=== PATIENT | female | born 1950 | race American Indian/Alaskan Native ===

== ENCOUNTER 2016-03-06 07:19 | Day surgery (SDC) | payer MEDICARE ==
[~2016-03-06 07:19] MED LIST: ANCEF/STERILE WATER 2 GM/20 ML 20 ML IV NR; NACL 0.9% 1000 ML 1,000 ML IV SCH; PEPCID PO NR
--- NOTE | 2016-03-06 07:55 | Anesthesia Day of Surgery ---
Anesthesia Day of Surgery - Day of Surgery Patient Examined: Yes Patient H&P Reviewed: Yes Patient is NPO: Yes
--- NOTE | 2016-03-06 07:55 | Anesthesia Consultation ---
Anesthesia Consult and Med Hx Date of service: 03/06/16 - Airway Anesthetic Teeth Evaluation: Bridges ROM Head & Neck: Adequate Mental/Hyoid Distance: Adequate Mallampati Class: Class II Intubation Access Assessment: Good - Pulmonary Exam CTA: Yes - Cardiac Exam Cardiac Exam: No Murmur - Pre-Operative Health Status ASA Pre-Surgery Classification: ASA2 Proposed Anesthetic Plan: General - Pulmonary Hx Smoking: No Hx Asthma: Yes (USES INHALERS QD) SOB: No Hx Sleep Apnea: No (ARMIDA PRE SCREEN HIGH RISK) - Cardiovascular System Hx Hypertension: Yes (NO MEDS) Hx Coronary Artery Disease: No Hx Heart Attack/AMI: No Hx Peripheral Vascular Disease: No - Central Nervous System Hx Seizures: No CVA: No Hx Psychiatric Problems: No - Gastrointestinal Hx Gastroesophageal Reflux Disease: Yes (Mild) - Endocrine Hx Renal Disease: No (Kidney stones) Hx Non-Insulin Dependent Diabetes: No - Hematic Hx Anemia: No - Other Systems Hx Alcohol Use: No Hx Substance Use: No Hx Cancer: No Hx Obesity: Yes (BMI=35)
[2016-03-06] MEDS ORDERED: SUBLIMAZE ONE (08:25)
[2016-03-06] MEDS ORDERED: DIPRIVAN 10 MG/ML IV ONE (08:26)
[2016-03-06] MEDS: VERSED IV NR ×2 (08:33→08:55)
--- NOTE | 2016-03-06 08:42 | XRay Report ---
AP ABDOMEN: HISTORY: Kidney stone. FINDINGS: There is moderate gas and stool in the colon. The renal shadows are grossly normal. No obvious pathologic calcifications are detected. Pelvic phleboliths are noted. The lung bases are not included. Surgical sutures and clips are noted in the right upper quadrant and near the GE junction, correlate with history. IMPRESSION: Mild fecal retention.
[2016-03-06] MEDS ORDERED: NEO SYNEPHRINE/NS Syringe(OR USE) IV ONE (09:32)
[2016-03-06] MEDS ORDERED: ROBINUL ONE (09:32)
[2016-03-06] MEDS ORDERED: XYLOCAINE MPF 2% ONE (09:47)
[2016-03-06] MEDS ORDERED: DECADRON ONE (09:47)
[2016-03-06] MEDS ORDERED: ZOFRAN ONE (09:47)
[2016-03-06] MEDS ORDERED: WATER FOR IRRIG STERILE IR ONE (10:06)
[2016-03-06] MEDS ORDERED: DILAUDID ONE (10:39)
[2016-03-06] MEDS ORDERED: NACL 0.9% 1000 ML 1,000 ML ONE (10:42)
--- NOTE | 2016-03-06 10:57 | Short Stay Summary ---
Short Stay Documentation Date of service: 03/06/16 - History H&P: obtained from office - Allergies and Medications Current Medications: Allergies latex Adverse Reaction (Verified 07/24/14 14:47) Shortness of Breath Home Medications Medication Instructions Recorded Confirmed Last Taken Type Albuterol Sulfate [Albuterol 0.63%] 0.63 mg IH TID PRN 07/24/14 03/06/16 06:00 History Budesonide [Pulmicort Flexhaler] 90 mcg IH BID 07/24/14 03/06/16 03/06/16 06:00 History Dicyclomine [Bentyl] 10 mg PO PRN PRN 07/24/14 03/06/16 2 Weeks Ago History Gabapentin 300 mg PO DAILY 07/24/14 03/06/16 03/05/16 18:00 History Hyoscyamine Subl [Levsin Sl 0.125] 0.125 mg SL Q4HR PRN 07/24/14 03/06/16 22:00 History Lutein 20 mg PO DAILY 07/24/14 03/06/16 2 Weeks Ago History valACYclovir [Valtrex] 500 mg PO 4XW 07/24/14 03/06/16 2 Weeks Ago History Ibuprofen [Motrin 400 MG tab] 400 mg PO PRN PRN 05/03/15 03/06/16 2 Weeks Ago History Centrum Silver Tablet 1 tab PO DAILY 02/26/16 03/06/16 03/05/16 06:00 History HYDROcodone/ACETAMINOPHEN 1 tab PO Q6HR PRN 02/26/16 03/06/16 1 Week Ago History [HYDROcodone-Acetamin 5-163/7.5] Lactobacillus Acidophilus 1 tab PO DAILY 02/26/16 03/06/16 03/05/16 06:00 History [Acidophilus Probiotic] Active Medications Famotidine (Pepcid) 20 mg PO PREOP NR Stop: 03/06/16 23:59 Last Admin: 03/06/16 08:17 Dose: 20 mg Sodium Chloride (Nacl 0.9% 1000 Ml) 1,000 mls @ 100 mls/hr IV DIRECT SOILA Last Admin: 03/06/16 08:29 Dose: 100 mls/hr Cefazolin Sodium (Ancef/Sterile Water 2 Gm/20 Ml) 20 mls @ 80 mls/hr IV PREOP NR PRN Reason: Protocol Stop: 03/06/16 23:59 Midazolam HCl (Versed) 2 mg IV PREOP NR Stop: 03/06/16 23:59 Last Admin: 03/06/16 08:55 Dose: 1 mg - Brief post op/procedure progress note Date of procedure: 03/06/16 Pre-op diagnosis: rt upj stone Post-op diagnosis: same Procedure: cysto, rpg, stent eswl -rt Anesthesia: GETA Surgeon: JASON BERNABE Estimated blood loss: none Condition: stable - Hospital course Hospital course: cipropercocet post op info on chart - Disposition Condition at discharge: Stable Disposition: DISCHARGED TO HOME OR SELFCARE
--- NOTE | 2016-03-06 11:55 | Operative Report ---
PREOPERATIVE DIAGNOSIS: Right 9 mm proximal ureteral stone. POSTOPERATIVE DIAGNOSIS: Right 9 mm proximal ureteral stone. PROCEDURE: Cystoscopy, right retrograde pyelogram, right double-J stent placement (6 M[place]ese 26 cm with an internal string), right extracorporal shockwave lithotripsy, staged procedure. SURGEON: Simone Vasquez M.D. ANESTHESIA: General. ANESTHESIOLOGIST: Ling Raya MD ESTIMATED BLOOD LOSS: Minimal. FLUIDS: Crystalloid. COMPLICATIONS: No complications. INDICATIONS: This patient is a 65-year-old female of Dr. Brittaney Diaz, presented to the office with a right flank pain. CT abdomen and pelvis revealed a 9 mm renal or proximal ureteral stone. She had intermittent pain, presents now for cystolithotripsy. She has had 4 stones in the past and has undergone metabolic workup. Her family was present. She has Percocet and Cipro. DESCRIPTION OF PROCEDURE: The patient was taken to the operative suite, placed in a supine position. After adequate general anesthesia, placed in a dorsal lithotomy position, prepped and draped in a sterile fashion. Pancystourethroscopy was performed with 22-Maltese Storz cystoscope. No bladder pathology. Right retrograde pyelogram was obtained with an 8 M[place]ese [place] catheter and 8 mL of contrast. No filling defects or obstruction in the distal ureter. The proximal ureter confirmed a 9 mm stone. A 0.035 Glidewire was placed, a 6-Maltese 26 cm double-J stent with a short internal string. Her bladder was drained. She was placed in a supine position. Her stone was localized in 2 planes using fluoroscopy. Extracorporal shock wave lithotripsy was administered with maximum kV of six 3000 shocks. Adequate fragmentation could be appreciated. She was extubated and taken to recovery room. She will go home on Cipro and Percocet and follow up in the office. JOB# [id number] [facility]
--- NOTE | 2016-03-06 12:22 | Post Anesthesia Evaluation ---
- Post Anesthesia Evaluation Patient Participated: Yes Airway Patent: Yes Stable Respiratory Function: Yes Nausea/Vomiting: No Temp > 96.8F: Yes Pain Manageable: Yes Adequeate Hydration: Yes Anesthesia Complications: No
[2016-03-06 16:53] VITALS: BP 145/70
== END 2016-03-06 12:33 | disposition home or self-care (01) ==
LOC: OR 07:19
PROVIDERS: ATTEND Urology
DX: N20.1 Calculus of ureter (principal); J45.909 Unspecified asthma, uncomplicated; I10 Essential (primary) hypertension; K21.9 Gastro-esophageal reflux disease without esophagitis; E66.9 Obesity, unspecified; Z68.35 Body mass index [BMI] 35.0-35.9, adult; Z98.49 Cataract extraction status, unspecified eye; Z98.890 Other specified postprocedural states
CPT/HCPCS: 50590; 52332; 74000; A4217; C1758; C1769; C2617; J0690; J1100; J1170; J2250; J2370; J2405; J2704; J3010; J7030; Q9967